=== PATIENT | male | born 1950 | race Caucasian/White ===

== ENCOUNTER 2018-11-30 07:51 | Outpatient (CLI) | payer MEDICARE, OTHER ==
[2018-11-30 08:14] LABS: CREATININE 1.1 mg/dL (0.6-1.2)
[2018-11-30] MEDS ORDERED: IOVERSOL 320 100 ML VIAL IVP ONE ×2 (08:33→10:01)
--- NOTE | 2018-11-30 12:04 | CT Report ---
Reason: PAIN,SWELLING,FEVER Procedure Date: 11/30/2018 Accession Number: [id number] / [id number] Procedure: CT - Facial Bones W/ CPT Code: FULL RESULT: EXAM: CT MAXILLOFACIAL WITH CONTRAST EXAM DATE: 11/30/2018 08:47 AM. CLINICAL HISTORY: Pain, swelling, fever. COMPARISONS: None. TECHNIQUE: Thin-section axial images were acquired of the face after administration of intravenous contrast. Post-processing: Coronal and sagittal reformats. Other: None. IV contrast: 80 mL of Optiray 320. In accordance with CT protocol optimization, one or more of the following dose reduction techniques were utilized for this exam: automated exposure control, adjustment of mA and/or KV based on patient size, or use of iterative reconstructive technique. FINDINGS: Soft Tissue: There is a 2.1 x 1.1 x 3.5 cm odontogenic left subperiosteal abscess along the mandible laterally with associated osseous destruction and cortical breakthrough. Detailed evaluation is somewhat limited by nearby streak artifact. No suspicious soft tissue mass. The infratemporal fossa and parapharyngeal spaces are unremarkable. Orbits:Symmetric and unremarkable. Bones: For osseous findings near the abscess, see above. No fracture or aggressive appearing bone lesion. Temporomandibular Joints: The temporomandibular joints are symmetric and normally located. Sinuses: Normal. No mucosal thickening or fluid levels. Glands: The parotid and submandibular glands are unremarkable. Other: None. IMPRESSION: Odontogenic subperiosteal abscess as described. [facility] The above findings of odontogenic abscess were discussed with Blessing Garcia by Dr. Kameron Oneil at 11:36 hrs on 11/30/18.
== END 2018-11-30 07:52 | disposition home or self-care (01) ==
LOC: LAB 07:51 → DI 07:52
PROVIDERS: ATTEND Internal Medicine
DX: M27.2 Inflammatory conditions of jaws (principal)
CPT/HCPCS: 36415; 70487; 82565; Q9967